=== PATIENT | female | born 2000 | race Two or more races ===

== ENCOUNTER 2019-01-22 20:24 | Emergency (ER) | payer SELFPAY ==
[~2019-01-22] VITALS: Ht 170.2 cm; Wt 52.2 kg
[2019-01-22] MEDS ORDERED: IV NORMAL SALINE 1000ML BAG 1,000 ML IV SCH (21:03)
[2019-01-22 21:13] LABS: BILIRUBIN,URINE NEGATIVE (NEG); CLARITY,URINE CLEAR; COLOR,URINE YELLOW; NITRITE,URINE NEGATIVE (NEG); PROTEIN,URINE NEGATIVE (NEG-TRACE); UROBILINOGEN,URINE 0.2 mg/dL (0.2 mg/dL)
[2019-01-22 21:14] LABS: BASO # 0.1 x10^3/uL (0.0-0.2); BASO % 1 % (0-3); EOS # 0.2 x10^3/uL (0.0-0.7); EOS % 1 % (0-3); HEMATOCRIT 39.5 % (36.0-47.0); HEMOGLOBIN 12.9 g/dL (12.0-15.5); LYMPH # 5.8 x10^3/uL (1.0-4.8); LYMPH % 38 % (24-48); MEAN CORPUSCULAR HEMOGLOBIN 27 pg (25-35); MEAN CORPUSCULAR HGB CONC 33 g/dL (31-37); MEAN CORPUSCULAR VOLUME 82 fL (79-100); MONO # 0.9 x10^3/uL (0.0-1.1); MONO % 6 % (0-9); NEUT # 8.4 x10^3uL (1.8-7.7); NEUT % 55 % (31-73); PLATELET COUNT 281 x10^3/uL (140-400); RED BLOOD COUNT 4.79 x10^6/uL (3.50-5.40); RED CELL DISTRIBUTION WIDTH 14.6 % (11.5-14.5); WHITE BLOOD COUNT 15.3 x10^3/uL (4.0-11.0)
[2019-01-22] MEDS ORDERED: ONDANSETRON PF 4 MG/2 ML VIAL. IV ONE (21:15)
[2019-01-22] MEDS ORDERED: MORPHINE SULFATE 2 MG/ML VIAL. IV ONE (21:15)
[2019-01-22 21:22] LABS: CALCIUM 9.6 mg/dL (8.5-10.1); CREATININE 0.7 mg/dL (0.6-1.0); GFR 106.7; POTASSIUM 3.1 mmol/L (3.5-5.1)
[2019-01-22 21:27] LABS: ALBUMIN 4.2 g/dL (3.4-5.0); TOTAL BILIRUBIN 0.5 mg/dL (0.2-1.0); TOTAL PROTEIN 8.6 g/dL (6.4-8.2)
[2019-01-22 21:29] LABS: BACTERIA,URINE FEW /HPF (0-FEW); SQUAMOUS EPITHELIAL CELL,UR MOD /LPF
[2019-01-22] MEDS ORDERED: AMIODARONE 150 MG/3 ML VIAL IVP ONE (21:30)
--- NOTE | 2019-01-22 21:40 | PHYS DOC ---
Past Medical History Past Medical History: No Pertinent History Past Surgical History: No Surgical History Additional Information: non smoker Alcohol Use: None Drug Use: None Adult General Chief Complaint Chief Complaint: ABDOMINAL PAIN HPI HPI Patient is a 18 year old female that presents with abdominal pain has been ongoing since 4 PM. Abdomen pain is located in the right lower quadrant, and left lower quadrant and pelvis. The patient has had this abdominal pain before around 6 months ago and then went away. The patient has associated symptoms of nausea. The patient states she took an Rochelle-Slade around 4:30 which did not help. The patient rates her pain as 6 out of 10 and throbbing. Review of Systems Review of Systems Constitutional: Denies fever or chills [] Eyes: Denies change in visual acuity, redness, or eye pain [] HENT: Denies nasal congestion or sore throat [] Respiratory: Denies cough or shortness of breath [] Cardiovascular: No additional information not addressed in HPI [] GI: Reports abdominal pain, nausea Denies vomiting, bloody stools or diarrhea [] : Denies dysuria, vaginal discharge or hematuria [] Musculoskeletal: Denies back pain or joint pain [] Integument: Denies rash or skin lesions [] Neurologic: Denies headache, focal weakness or sensory changes [] Endocrine: Denies polyuria or polydipsia [] Complete systems were reviewed and found to be within normal limits, except as documented in this note. Current Medications Current Medications Current Medications Medications (Trade) Dose Ordered Sig/Kirsten Start Time Stop Time Status Last Admin Dose Admin Amiodarone HCl (Cordarone) 150 mg 1X ONCE 01/22/19 21:30 01/22/19 21:30 DC Azithromycin (Zithromax) 1,000 mg 1X ONCE 01/23/19 01:15 01/23/19 01:16 DC Ceftriaxone Sodium (Rocephin Im) 250 mg 1X ONCE 01/23/19 01:15 01/23/19 01:16 DC Info (CONTRAST GIVEN -- Rx MONITORING) 1 each PRN DAILY PRN 01/22/19 23:00 01/24/19 22:59 Iohexol (Omnipaque 240 Mg/ml) 50 ml STK-MED ONCE 01/22/19 22:49 01/22/19 22:50 DC Iohexol (Omnipaque 300 Mg/ml) 100 ml STK-MED ONCE 01/22/19 22:49 01/22/19 22:50 DC Morphine Sulfate (Morphine Sulfate) 2 mg 1X ONCE 01/22/19 21:15 01/22/19 21:16 DC Ondansetron HCl (Zofran) 4 mg 1X ONCE 01/22/19 21:15 01/22/19 21:16 DC 01/22/19 21:25 4 MG Potassium Chloride (Klor-Con) 40 meq 1X ONCE 01/23/19 01:00 01/23/19 01:01 DC Sodium Chloride 1,000 ml @ 1,000 mls/hr Q1H 01/22/19 21:03 01/22/19 22:02 DC 01/22/19 21:26 1,000 MLS/HR Allergies Allergies Allergies Coded Allergies Type Severity Reaction Last Updated Verified No Known Drug Allergies 01/22/19 No Physical Exam Physical Exam Constitutional: Well developed, well nourished, no acute distress, non-toxic appearance. [] HENT: Normocephalic, atraumatic, bilateral external ears normal, oropharynx moist, no oral exudates, nose normal. [] Eyes: PERRLA, EOMI, conjunctiva normal, no discharge. [] Neck: Normal range of motion, no tenderness, supple, no stridor. [] Cardiovascular:Heart rate regular rhythm, no murmur [] Lungs & Thorax: Bilateral breath sounds clear to auscultation [] Abdomen: Bowel sounds normal, soft, tenderness to left lower quadrant and right lower quadrant. No rebound tenderness, no rovsing's sign, no masses, no pulsatile masses. [] Skin: Warm, dry, no erythema, no rash. [] Back: No tenderness, no CVA tenderness. [] Extremities: No tenderness, no cyanosis, no clubbing, ROM intact, no edema. [] Neurologic: Alert and oriented X 3, normal motor function, normal sensory function, no focal deficits noted. [] Psychologic: Affect normal, judgement normal, mood normal. [] Current Patient Data Vital Signs Vital Signs Date Time Temp Pulse Resp B/P (MAP) Pulse Ox O2 Delivery O2 Flow Rate FiO2 01/22/19 20:35 98.6 80 20 114/62 (79) 100 Room Air 98.6 Lab Values Laboratory Tests Test 01/22/19 20:35 01/22/19 20:50 01/22/19 20:56 Urine Collection Type Unknown Urine Color Yellow Urine Clarity Clear Urine pH 6.0 Urine Specific [place] 1.025 Urine Protein Negative mg/dL (NEG-TRACE) Urine Glucose (UA) Negative mg/dL (NEG) Urine Ketones (Stick) Negative mg/dL (NEG) Urine Blood Trace (NEG) Urine Nitrite Negative (NEG) Urine Bilirubin Negative (NEG) Urine Urobilinogen Dipstick 0.2 mg/dL (0.2 mg/dL) Urine Leukocyte Esterase Negative (NEG) Urine RBC 6-10 /HPF (0-2) Urine WBC 1-4 /HPF (0-4) Urine Squamous Epithelial Cells Mod /LPF Urine Bacteria Few /HPF (0-FEW) Urine Mucus Mod /LPF White Blood Count 15.3 x10^3/uL (4.0-11.0) H Red Blood Count 4.79 x10^6/uL (3.50-5.40) Hemoglobin 12.9 g/dL (12.0-15.5) Hematocrit 39.5 % (36.0-47.0) Mean Corpuscular Volume 82 fL (79-100) Mean Corpuscular Hemoglobin 27 pg (25-35) Mean Corpuscular Hemoglobin Concent 33 g/dL (31-37) Red Cell Distribution Width 14.6 % (11.5-14.5) H Platelet Count 281 x10^3/uL (140-400) Neutrophils (%) (Auto) 55 % (31-73) Lymphocytes (%) (Auto) 38 % (24-48) Monocytes (%) (Auto) 6 % (0-9) Eosinophils (%) (Auto) 1 % (0-3) Basophils (%) (Auto) 1 % (0-3) Neutrophils # (Auto) 8.4 x10^3uL (1.8-7.7) H Lymphocytes # (Auto) 5.8 x10^3/uL (1.0-4.8) H Monocytes # (Auto) 0.9 x10^3/uL (0.0-1.1) Eosinophils # (Auto) 0.2 x10^3/uL (0.0-0.7) Basophils # (Auto) 0.1 x10^3/uL (0.0-0.2) Sodium Level 142 mmol/L (136-145) Potassium Level 3.1 mmol/L (3.5-5.1) L Chloride Level 103 mmol/L (98-107) Carbon Dioxide Level 27 mmol/L (21-32) Anion Gap 12 (6-14) Blood Urea Nitrogen 11 mg/dL (7-20) Creatinine 0.7 mg/dL (0.6-1.0) Estimated GFR (Cockcroft-Gault) 106.7 BUN/Creatinine Ratio 16 (6-20) Glucose Level 80 mg/dL (70-99) Calcium Level 9.6 mg/dL (8.5-10.1) Total Bilirubin 0.5 mg/dL (0.2-1.0) Aspartate Amino Transferase (AST) 49 U/L (15-37) H Alanine Aminotransferase (ALT) 56 U/L (14-59) Alkaline Phosphatase 115 U/L (46-116) Total Protein 8.6 g/dL (6.4-8.2) H Albumin 4.2 g/dL (3.4-5.0) Albumin/Globulin Ratio 1.0 (1.0-1.7) Lipase 111 U/L (73-393) POC Urine HCG, Qualitative Hcg negative (Negative) Laboratory Tests 01/22/19 20:50 Laboratory Tests 01/22/19 20:50 Microbiology 01/22/19 Wet Prep - Final, Complete EKG EKG EKG interpreted by Dr. Chintan Palmer with rate of 70. No STEMI with PVC's. Radiology/Procedures Radiology/Procedures Pelvic Exam: External exam is normal and without rash, No CMT, OS is closed, white discharge, uterus NTTP, No adnexal masses , mild tenderness noted. Sent GC/Chlamydia and Wet [place] swabs. PATIENT: MARCELINO FUENTES ACCOUNT: [id number] : 2000 LOCATION: ER AGE: 18 SEX: F EXAM STATUS: REG ER ORD. PHYSICIAN: XAVI WINSTON APRN REASON: pelvic pain PROCEDURE: PELVIS W/TV INDICATION: Pelvic pain COMPARISON: None. TECHNIQUE: Grayscale and color ultrasound images uterus and adnexa. Transabdominal and transvaginal images obtained. FINDINGS: Uterus: 66 x 38 x 31 mm. Endometrial Stripe: 3 mm. Right Ovary: 34 x 24 x 20 mm. Left Ovary: 30 x 20 x 21 mm. Vascular flow identified to bilateral ovaries. IMPRESSION: 1. Vascular flow seen to the ovaries. Electronically signed by: Lonnie Acevedo MD (01/22/2019 11:06 PM) [facility] [place] PATIENT: MARCELINO FUENTES ACCOUNT: [id number] : 2000 LOCATION: ER AGE: 18 SEX: F EXAM STATUS: REG ER ORD. PHYSICIAN: XAVI WINSTON APRN REASON: abdominal pain PROCEDURE: CT ABD PELV W/ORAL&IV CONTRAST INDICATION: Abdomen pain COMPARISON: None. TECHNIQUE: Axial CT images obtained through the abdomen and pelvis with contrast. One or more of the following individualized dose reduction techniques were utilized for this examination: 1. Automated exposure control; 2. Adjustment of the mA and/or kV according to patient size; 3. Use of iterative reconstruction technique. FINDINGS: Abdominal aorta not aneurysmal. No intrahepatic bile duct dilation. No peripancreatic fluid collection. Spleen unremarkable. Mildly prominent extrarenal pelvis bilaterally. Urinary bladder somewhat distended at time of exam. Appendix is partially seen without definite adjacent inflammatory changes. Measures up to about 6 mm. No dilated loops of bowel to suggest obstruction. Small fat-containing umbilical hernia. IMPRESSION: 1. Appendix is near the upper limits of normal in size without definite adjacent inflammatory changes. 2. No evidence of bowel obstruction. Electronically signed by: Lonnie Acevedo MD (01/23/2019 1:04 AM) [place] [id number] Course & Med Decision Making Course & Med Decision Making Pertinent Labs and Imaging studies reviewed. (See chart for details) Will get, ua, urine preg, CT, ultrasound, labs, and pelvic with gc/chlamydia, and wet prep. Patient is agreeable. Rhythm appeared irregular on monitor so ordered EKG. Labs are unremarkable with the exception of WBC of 15,000. The patient does not appear to be toxic. Will prophylactically treat for gc/chlamydia. Potassium was low at 3.1 and so will give potassium. The CT report showed an appendix at the upper limits of normal. Discussed with patient and offered admission or to go home and come back in 12 hours for a reevaluation. The patient declined admission and states that she will come back to ER for reevaluation in 12 hours. The patient was informed that she is to have nothing to eat or drink between now and then. The patient is agreeable to the plan of care. Dragon Disclaimer Dragon Disclaimer This electronic medical record was generated, in whole or in part, using a voice recognition dictation system. Departure Departure Impression: Primary Impression: Abdominal pain Disposition: HOME, SELF-CARE Condition: STABLE Referrals: NO PCP (PCP) Patient Instructions: Abdominal Pain, Possible Early Appendicitis Additional Instructions: Please come back to ER in 12 hours for reevaluation. Do not eat or drink between now and then. If things get worse come back to ER earlier. Problem Qualifiers Primary Impression: Abdominal pain Abdominal location: right lower quadrant Qualified Codes: R10.31 - Right lower quadrant pain XAVI WINSTON APRN Jan 22, 2019 21:40
[2019-01-22] MEDS ORDERED: IOHEXOL 300 MG/ML 100ML VIAL. IV ONE (22:45)
[2019-01-22] MEDS ORDERED: IOHEXOL 240 MG/ML 50ML VIAL. ONE (22:49)
[2019-01-22] MEDS ORDERED: IOHEXOL 300 MG/ML 100ML VIAL. ONE (22:49)
[2019-01-22] MEDS ORDERED: CONTRAST GIVEN. MC PRN (23:00)
[2019-01-22] MEDS ORDERED: IOHEXOL 240 MG/ML 50ML VIAL. PO ONE (23:00)
--- NOTE | 2019-01-22 23:09 | RAD ---
INDICATION: Pelvic pain COMPARISON: None. TECHNIQUE: Grayscale and color ultrasound images uterus and adnexa. Transabdominal and transvaginal images obtained. FINDINGS: Uterus: 66 x 38 x 31 mm. Endometrial Stripe: 3 mm. Right Ovary: 34 x 24 x 20 mm. Left Ovary: 30 x 20 x 21 mm. Vascular flow identified to bilateral ovaries. IMPRESSION: 1. Vascular flow seen to the ovaries. Electronically signed by: Lonnie Acevedo MD (01/22/2019 11:06 PM) [facility]
[2019-01-23] MEDS ORDERED: POTASSIUM CHLORIDE 20 MEQ TABLET.ER. PO ONE (01:00)
--- NOTE | 2019-01-23 01:07 | RAD ---
INDICATION: Abdomen pain COMPARISON: None. TECHNIQUE: Axial CT images obtained through the abdomen and pelvis with contrast. One or more of the following individualized dose reduction techniques were utilized for this examination: 1. Automated exposure control; 2. Adjustment of the mA and/or kV according to patient size; 3. Use of iterative reconstruction technique. FINDINGS: Abdominal aorta not aneurysmal. No intrahepatic bile duct dilation. No peripancreatic fluid collection. Spleen unremarkable. Mildly prominent extrarenal pelvis bilaterally. Urinary bladder somewhat distended at time of exam. Appendix is partially seen without definite adjacent inflammatory changes. Measures up to about 6 mm. No dilated loops of bowel to suggest obstruction. Small fat-containing umbilical hernia. IMPRESSION: 1. Appendix is near the upper limits of normal in size without definite adjacent inflammatory changes. 2. No evidence of bowel obstruction. Electronically signed by: Lonnie Acevedo MD (01/23/2019 1:04 AM) [facility]
[2019-01-23 01:09] VITALS: BP 107/56
[2019-01-23] MEDS ORDERED: AZITHROMYCIN 250 MG TABLET. PO ONE (01:15)
[2019-01-23] MEDS ORDERED: cefTRIAXone IM 250 MG VIAL IM ONE (01:15)
--- NOTE | 2019-01-23 06:51 | EKG ---
[facility] [address] [place] [address] Test Date: 2019-01-22 Test Time: 21:06:43 Pat Name: MARCELINO FUENTES Department: Room: Gender: F Education Liaison: : 2000 Requested By: XAVI WINSTON Order Number: [id number] Reading MD: Measurements Intervals [place] Rate: 70 P: 41 ND: 132 QRS: 23 QRSD: 94 T: 23 QT: 382 QTc: 415 Interpretive Statements SINUS RHYTHM VENTRICULAR PREMATURE COMPLEX(ES) ABNORMAL ECG RI6.01 Unconfirmed report No previous ECG available for comparison
[2019-01-25 13:18] LABS: GC PROBE Negative (Negative)
== END 2019-01-23 02:00 | disposition home or self-care (01) ==
LOC: ER 20:24
DX: R10.31 Right lower quadrant pain (principal); R10.32 Left lower quadrant pain; K42.9 Umbilical hernia without obstruction or gangrene; R11.0 Nausea
CPT/HCPCS: 36415; 74177; 76830; 76856; 80053; 81001; 81025; 83690; 85025; 87491; 87591; 93005; 96372; 96374; 99285; J0696; J2405; J7030; Q0111; Q0144; Q9966; Q9967; 96360